=== PATIENT | male | born 1965 | race Caucasian/White ===

== ENCOUNTER 2018-07-23 00:40 | Inpatient (IN) | payer SELFPAY ==
[~2018-07-23] VITALS: Ht 165.1 cm; Wt 77.9 kg
[2018-07-23] VITALS (9 sets, daily range): BP systolic 151–207; BP diastolic 90–111; PULSE 96–110; TEMP 97.5–98.8
[2018-07-23 01:15] LABS: BASO % 0.3 % (0.0-2.0); EOS % 0.4 % (0-4.0); GRAN # 6.7 (1.4-6.5); GRAN % 73.3 % (42.2-75.2); LYMPH # 1.6 (1.2-3.4); LYMPH % 17.2 % (20.0-51.0); MEAN CELL VOLUME 91 fl (80.0-100.0); MEAN CORPUSCULAR HEMOGLOBIN 30 pg (27.0-31.0); MEAN CORPUSCULAR HGB CONC 33 g/dl (33.0-37.0); MEAN PLATELET VOLUME 10.4 fl (7.4-10.4); MONO # 0.7 (0.1-0.6); MONO % 8.2 % (1.7-9.3); PLATELET COUNT 343 K/mm3 (130-400)
[2018-07-23 01:38] LABS: HEMATOCRIT 36.3 % (42.0-52.0)
[2018-07-23 01:53] LABS: ALANINE AMINOTRANSFERASE 51 U/L (21-72); ALKALINE PHOSPHATASE 121 U/L (50-136); ANION GAP 10 mmol/L (7-16); AST,SGOT 34 U/L (15-37); BILIRUBIN,TOTAL 0.2 mg/dL (0.0-1.0); BLOOD UREA NITROGEN 35 mg/dL (9-20); CALCIUM 7.8 mg/dL (8.4-10.2); CARBON DIOXIDE 21 mmol/L (22-30); CHLORIDE 100 mmol/L (98-107); POTASSIUM 5.2 mmol/L (3.4-5.0); SODIUM 131 mmol/L (137-145); TOTAL PROTEIN 6.6 gm/dL (6.4-8.2)
[2018-07-23 01:56] LABS: ALCOHOL(ethanol),MEDICAL < 10 mg/dL; GLUCOSE 537 mg/dL (74-106)
[2018-07-23 02:37] LABS: TRICYCLIC ANTIDEPRESS URINE NEGATIVE
[2018-07-23 03:13] LABS: ARTERIAL BLD GAS O2 SATURATION 95.1 % (92-100); ARTERIAL BLD GAS TCO2 CT 22.5; ARTERIAL BLOOD GAS BASE EXCESS -4.5 (-2-2); ARTERIAL BLOOD GAS HCO3 21.2 meq/L (22-26); ARTERIAL BLOOD GAS PCO2 41.6 mmHg (35-45); ARTERIAL BLOOD GAS pH 7.33 (7.35-7.45)
[2018-07-23 09:39] LABS: INR 0.9 (0.8-3.0); PROTHROMBIN TIME 10.7 SECONDS (9.7-12.8)
[2018-07-23 09:42] LABS: PARTIAL THROMBOPLASTIN TIME 29.7 SECONDS (26.0-37.0)
[2018-07-23 10:21] LABS: COLLECTION METHOD CLEAN CATCH
[2018-07-23 10:28] LABS: PH 6 (5-8); SQUAMOUS EPITHELIAL None Seen /hpf; URINE APPEARANCE Clear; URINE BACTERIA None Seen /hpf; URINE BILIRUBIN Negative (NEGATIVE); URINE BLOOD Negative (NEGATIVE); URINE COLOR Yellow; URINE GLUCOSE 2+ (NEGATIVE); URINE KETONE Negative (NEGATIVE); URINE LEUKOCYTE ESTERASE Negative (NEGATIVE); URINE NITRATE Negative (NEGATIVE); URINE PROTEIN(semi-quant) 2+ (NEGATIVE); URINE RBC 0-2 /hpf; URINE UROBILINOGEN Negative (NEGATIVE); URINE WBC 0-2 /hpf
[2018-07-23 12:22] LABS: ALBUMIN 2.6 gm/dL (3.5-5.0); BILIRUBIN,TOTAL 0.2 mg/dL (0.0-1.0); CALCIUM 7.3 mg/dL (8.4-10.2); CREATININE, serum 2.44 mg/dL (0.66-1.25); POTASSIUM 4.7 mmol/L (3.4-5.0); TOTAL PROTEIN 5.7 gm/dL (6.4-8.2)
[2018-07-24] VITALS (11 sets, daily range): BP systolic 152–204; BP diastolic 93–119; PULSE 86–116; TEMP 96.8–99.3
[2018-07-24 10:36] LABS: ALBUMIN 2.3 gm/dL (3.5-5.0); BILIRUBIN,TOTAL 0.2 mg/dL (0.0-1.0); CALCIUM 7.4 mg/dL (8.4-10.2); CREATININE, serum 1.64 mg/dL (0.66-1.25); POTASSIUM 4.3 mmol/L (3.4-5.0); TOTAL PROTEIN 5.4 gm/dL (6.4-8.2)
[2018-07-25 00:24] VITALS: BP 180/105; PULSE 105; TEMP 98.4
[2018-07-25 03:09] VITALS: BP 174/106; PULSE 100; TEMP 97.9
[2018-07-25 06:10] VITALS: BP 196/108; PULSE 102; TEMP 98.6
[2018-07-25 06:53] VITALS: BP 183/90; PULSE 101; TEMP 98.1
[2018-07-25 07:30] LABS: ALBUMIN 2.4 gm/dL (3.5-5.0); BILIRUBIN,TOTAL 0.2 mg/dL (0.0-1.0); CALCIUM 7.7 mg/dL (8.4-10.2); CREATININE, serum 1.49 mg/dL (0.66-1.25); POTASSIUM 4.4 mmol/L (3.4-5.0); TOTAL PROTEIN 5.6 gm/dL (6.4-8.2)
[2018-07-25] MEDS ORDERED: LEVEMIR100 U/ML SQ (09:37)
[2018-07-25] MEDS ORDERED: PRINZIDE 12.5 M1 TA1 PO ×2 (09:38→11:15)
[2018-07-25] MEDS ORDERED: NOVOLOG FLEX100 U/ML SQ (09:38)
[2018-07-25] MEDS ORDERED: LOPRESSOR 550 MG/TAB PO ×2 (09:38→11:15)
[2018-07-25 10:35] VITALS: BP 174/106; PULSE 102; TEMP 98.9
[2018-07-25 11:25] VITALS: BP 159/99; PULSE 102; TEMP 98.4
== END 2018-07-25 12:17 | disposition home or self-care (01) | DRG 897 ==
LOC: COL.ER 00:40 → MEDICAL 04:05 → COL.ER 04:05 → MEDICAL 04:05 → COL.ER 04:05 → MEDICAL 12:00
PROVIDERS: Emergency Medicine; Nurse Practitioner; Student in an Organized Health Care Education/Training Program
DX: F15.93 Other stimulant use, unspecified with withdrawal (principal); N17.9 Acute kidney failure, unspecified; F11.23 Opioid dependence with withdrawal; E11.65 Type 2 diabetes mellitus with hyperglycemia; I12.9 Hypertensive chronic kidney disease with stage 1 through stage 4 chronic kidney disease, or unspecified chronic kidney disease; E11.22 Type 2 diabetes mellitus with diabetic chronic kidney disease; N18.9 Chronic kidney disease, unspecified; E87.5 Hyperkalemia; Z79.4 Long term (current) use of insulin
CPT/HCPCS: 99223-AI; 99233-AI; 99239; G0378; G8978-GP; G8979-GP; G8987-GO; G8988-GO; J1815; J2060; J3411; J7030